=== PATIENT | male | born 1985 | race Two or more races ===

== ENCOUNTER 2016-08-17 23:05 | Emergency (ER) | payer MEDICAID, OTHER ==
[~2016-08-17] VITALS: Ht 175.3 cm; Wt 68.0 kg
[2016-08-17 23:22] VITALS: BP 123/65
== END 2016-08-18 06:01 | disposition left against medical advice (07) ==
LOC: ER 23:23
DX: M54.2 Cervicalgia (principal); R51 Headache; Z53.21 Procedure and treatment not carried out due to patient leaving prior to being seen by health care provider; V89.2XXA Person injured in unspecified motor-vehicle accident, traffic, initial encounter; Y93.89 Activity, other specified; Y99.8 Other external cause status; Y92.89 Other specified places as the place of occurrence of the external cause
CPT/HCPCS: 70450; 72125